=== PATIENT | male | born 1955 | race Caucasian/White ===

== ENCOUNTER 2022-04-23 16:10 | Outpatient (CLI) | payer MEDICARE | END 2022-04-23 16:11 | disposition home or self-care (01) | LOC: MADRAD 16:10 | PROVIDERS: ATTEND Registered Nurse | DX: M25.512 Pain in left shoulder (principal); J98.4 Other disorders of lung; M67.813 Other specified disorders of tendon, right shoulder | CPT/HCPCS: 71046 ==

== ENCOUNTER 2022-12-04 13:20 | Outpatient (CLI) | payer MEDICARE | END 2022-12-04 13:21 | disposition home or self-care (01) | LOC: MADRAD 13:20 | PROVIDERS: ATTEND Nurse Practitioner Family | DX: M25.551 Pain in right hip (principal); M54.50 Low back pain, unspecified; S72.001A Fracture of unspecified part of neck of right femur, initial encounter for closed fracture; M47.816 Spondylosis without myelopathy or radiculopathy, lumbar region; Z98.890 Other specified postprocedural states | CPT/HCPCS: 72100 ==